=== PATIENT | female | born 1965 | race Caucasian/White ===

== ENCOUNTER 2023-02-21 04:59 | Emergency (ER) | payer MEDICAID ==
[~2023-02-21] VITALS: Ht 162.6 cm; Wt 87.0 kg
[2023-02-21 05:01] VITALS: BP 185/101; PULSE 95; RESP 18; TEMP 99.1; O2SAT 100
[2023-02-21] MEDS ORDERED: MORPHINE SULFATE 4 MG/ML CPJ (NOT FOR IM USE) IV ONE (06:15)
[2023-02-21] MEDS ORDERED: KETOROLAC 30MG/ML VIAL IV ONE (06:15)
[2023-02-21] MEDS ORDERED: IOHEXOL-350 100 ML BOTTLE ONE (08:21)
[2023-02-21 09:09] LABS: CHLORIDE 107 mEq/L (98-107)
[2023-02-21] MEDS ORDERED: NAPR-1164 MT (09:32)
[2023-02-21] MEDS ORDERED: CYCL5TAB MT (09:32)
== END 2023-02-21 10:10 | disposition home or self-care (01) ==
LOC: ER 04:59
DX: M48.02 Spinal stenosis, cervical region (principal); J45.909 Unspecified asthma, uncomplicated; E78.00 Pure hypercholesterolemia, unspecified; E11.9 Type 2 diabetes mellitus without complications
CPT/HCPCS: 99285; 70496; 96374; 96375; 80048; 81025; 36415; 70498; Q9967; J1885; J2270